=== PATIENT | female | born 1945 | race Caucasian/White ===

== ENCOUNTER 2017-12-31 11:44 | Observation (INO) | payer OTHER ==
[~2017-12-31] VITALS: Ht 157.5 cm; Wt 106.0 kg
[2017-12-31 12:28] LABS: HEMATOCRIT 41.8 % (36.0-46.0); HEMOGLOBIN 13.9 G/DL (11.9-15.5); MCH 30.2 PG (29.0-34.0); MCHC 33.3 G/DL (30.0-36.0); MCV 90.7 FL (83-99); PLATELET COUNT 193 K/uL (156-360); RBC DIS.WIDTH-CV 13.8 % (11.8-14.6); RBC DIS.WIDTH-SD 46.1 % (39-53); RED BLOOD COUNT 4.61 M/uL (3.80-5.20); WHITE BLOOD COUNT 11.3 K/uL (4.1-10.2)
[2017-12-31 12:37] LABS: CHLORIDE 105 mEq/L (99-109); SODIUM 143 mEq/L (136-147)
[2017-12-31 12:38] LABS: GLUCOSE 106 mg/dL (70-99)
[2017-12-31 12:42] LABS: CREATININE 0.8 mg/dL (0.6-1.3); GFR ESTIMATE (CALCULATED) > 59 mL/min/
[2017-12-31 12:43] LABS: UREA NITROGEN (BUN) 16 mg/dL (9-23)
[2017-12-31 12:49] LABS: TROP-I INTERPRETATION NEGATIVE; TROPONIN-I < 0.01 ng/mL (0.0-0.30)
[2017-12-31] MEDS ORDERED: PRED FORTE100 DROP/5 RIGHT EYE (14:09)
[2017-12-31] MEDS ORDERED: BESIVANCE5 ML RIGHT EYE (14:09)
[2017-12-31] MEDS ORDERED: DILANTIN100 MG PO ×2 (14:10)
[2017-12-31] MEDS ORDERED: LIPITOR80 MG PO (14:10)
[2017-12-31] MEDS ORDERED: VASOTEC5 MG PO (14:10)
[2017-12-31] MEDS ORDERED: GLUCOPHAGE500 MG PO ×2 (14:11)
[2017-12-31] MEDS ORDERED: LO-DOSE ASPIRIN81 M1 PO (14:12)
[2017-12-31] MEDS ORDERED: FLONASE16 G1 BOTH NARES (14:13)
[2017-12-31] MEDS ORDERED: PRESERVISION T1 EACH PO (14:13)
[2017-12-31] MEDS ORDERED: MURO-128 5300 DROP/1 BOTH EYES (14:14)
[2017-12-31] MEDS ORDERED: MURO-128 OPHTH3.5 GM BOTH EYES (14:14)
[2017-12-31 15:00] LABS: MAGNESIUM 2.1 mg/dL (1.3-2.7)
[2017-12-31 16:15] VITALS: BP 152/65
[2017-12-31 16:44] LABS: THYROTROPIN (TSH) 1.5 MIU/L (0.4-5.5)
[2017-12-31 19:00] VITALS: BP 172/71
[2017-12-31 19:30] LABS: TROP-I INTERPRETATION NEGATIVE; TROPONIN-I 0.02 ng/mL (0.0-0.30)
[2017-12-31 20:00] VITALS: BP 172/71
[2017-12-31 23:43] VITALS: BP 147/67
[2018-01-01 01:08] LABS: TROP-I INTERPRETATION NEGATIVE; TROPONIN-I < 0.01 ng/mL (0.0-0.30)
[2018-01-01 04:00] VITALS: BP 167/70
[2018-01-01 06:09] LABS: CHLORIDE 106 MEQ/L (99-109); CREATININE 0.8 MG/DL (0.6-1.3); GFR ESTIMATE (CALCULATED) > 59 mL/min/; GLUCOSE 82 mg/dL (70-99); POTASSIUM 4.4 MEQ/L (3.7-5.4); SODIUM 138 MEQ/L (136-147); UREA NITROGEN (BUN) 18 mg/dL (9-23)
[2018-01-01 08:00] LABS: HEMATOCRIT 41.6 % (36.0-46.0); HEMOGLOBIN 13.1 G/DL (11.9-15.5); MCH 28.9 PG (29.0-34.0); MCHC 31.5 G/DL (30.0-36.0); MCV 91.6 FL (83-99); PLATELET COUNT 178 K/uL (156-360); RBC DIS.WIDTH-CV 13.8 % (11.8-14.6); RBC DIS.WIDTH-SD 47.2 % (39-53); RED BLOOD COUNT 4.54 M/uL (3.80-5.20); WHITE BLOOD COUNT 10.1 K/uL (4.1-10.2)
[2018-01-01] MEDS ORDERED: ELIQUIS5 MG PO (08:05)
[2018-01-01] MEDS ORDERED: CARDIZEM30 MG PO (08:05)
[2018-01-01] MEDS ORDERED: DILTIAZEM 24HR120 MG PO (08:05)
[2018-01-01 08:27] VITALS: BP 171/64
== END 2018-01-01 10:35 | disposition home or self-care (01) ==
LOC: EME 11:44 → EDOF 14:27 → ENRESERV 14:43 → EDOF 15:11 → 4EAST 15:58
PROVIDERS: Emergency Medicine; Hospitalist
DX: I48.0 Paroxysmal atrial fibrillation (principal); I10 Essential (primary) hypertension; E78.5 Hyperlipidemia, unspecified; E11.9 Type 2 diabetes mellitus without complications; G40.909 Epilepsy, unspecified, not intractable, without status epilepticus; E66.01 Morbid (severe) obesity due to excess calories; Z68.41 Body mass index [BMI] 40.0-44.9, adult; Z90.49 Acquired absence of other specified parts of digestive tract; Z83.3 Family history of diabetes mellitus; Z84.1 Family history of disorders of kidney and ureter; Z88.5 Allergy status to narcotic agent; Z88.6 Allergy status to analgesic agent; Z79.82 Long term (current) use of aspirin; Z79.84 Long term (current) use of oral hypoglycemic drugs
CPT/HCPCS: 71045; 80048; 81003; 82948; 83735; 84443; 84484; 85027; 93005; 99281; 99285; G0378; J1644; J1815; J7030